=== PATIENT | female | born 1960 ===

== ENCOUNTER → 2017-03-27 | Outpatient (CLI) | payer OTHER, MEDICAID | LOC: FCPNEURO 21:00 | PROVIDERS: ATTEND Psychiatry & Neurology Sleep Medicine | DX: G47.31 Primary central sleep apnea (principal); G47.33 Obstructive sleep apnea (adult) (pediatric) ==

== ENCOUNTER → 2017-04-09 | Outpatient (CLI) | payer OTHER, MEDICAID | LOC: BHLMT 14:30 | PROVIDERS: ATTEND Internal Medicine Cardiovascular Disease | DX: R00.1 Bradycardia, unspecified (principal); I49.5 Sick sinus syndrome; Z95.0 Presence of cardiac pacemaker | CPT/HCPCS: 93005-PO ==

== ENCOUNTER → 2017-08-23 | Outpatient (CLI) | payer OTHER, MEDICAID | LOC: CIMAGING 11:47 | PROVIDERS: ATTEND Registered Nurse | DX: M54.16 Radiculopathy, lumbar region (principal); M51.36 Other intervertebral disc degeneration, lumbar region | CPT/HCPCS: 72080-PO ==

== ENCOUNTER → 2018-02-27 | Outpatient (CLI) | payer OTHER, MEDICAID | LOC: BHLMT 10:00 | PROVIDERS: ATTEND Internal Medicine Cardiovascular Disease | DX: R00.1 Bradycardia, unspecified (principal); R60.9 Edema, unspecified | CPT/HCPCS: 93306-PO ==